=== PATIENT | male | born 1970 | race Caucasian/White ===

== ENCOUNTER → 2024-05-10 08:09 | Outpatient (REF) | payer SELFPAY | LOC: RAD 08:09 | PROVIDERS: FAMILY PHYSICIAN Family Medicine | DX: I34.0 Nonrheumatic mitral (valve) insufficiency (principal) | CPT/HCPCS: 75571 ==

== ENCOUNTER 2024-07-09 06:18 | Day surgery (SDC) | payer OTHER, SELFPAY | END 2024-07-09 15:43 | disposition home or self-care (01) | LOC: GI 06:18 | PROVIDERS: ATTENDING PHYSICIAN Specialist | DX: Z12.11 Encounter for screening for malignant neoplasm of colon (principal); Z86.0100 Personal history of colon polyps, unspecified | CPT/HCPCS: G0105 ==

== ENCOUNTER 2025-02-14 09:36 | Outpatient (RCR) | payer OTHER, SELFPAY | END 2025-02-14 23:59 | disposition home or self-care (01) | LOC: RPT 09:36 | PROVIDERS: ATTENDING PHYSICIAN Family Medicine | DX: M25.511 Pain in right shoulder (principal); M54.51 Vertebrogenic low back pain; Z73.6 Limitation of activities due to disability | CPT/HCPCS: 97110; 97162 ==